=== PATIENT | female | born 1975 | race Caucasian/White ===

== ENCOUNTER 2017-11-13 19:17 | Emergency (ER) | payer OTHER ==
[~2017-11-13] VITALS: Ht 152.4 cm; Wt 77.6 kg
[2017-11-13 19:35] VITALS: BP 124/58
--- NOTE | 2017-11-13 20:18 | ED.ADGEN ---
Adult General Chief Complaint Chief Complaint Nasal congestion, Eye itching, tongue lesion HPI HPI She has noted increased itchy eyes and nasal drainage over the last 3 days. Today, she had a swollen right tongue with some swelling underneath her tongue. She had no difficulty swallowing or breathing. She's had a mild cough and hasn' t used her inhaler. Patient denies any fevers, productive cough. She denies any chest pain. She has prior history of angioedema Review of Systems Review of Systems Constitutional: Denies fever or chills Eyes: Denies change in visual acuity, redness, or eye pain HENT: With nasal congestion, no sore throat or stridor Respiratory: With non productive cough, no shortness of breath or stridor Cardiovascular: Denies chest pain or palpitations GI: Denies abdominal pain, nausea, vomiting, bloody stools or diarrhea : Denies dysuria or hematuria Musculoskeletal: Denies back pain or joint pain Integument: Denies rash or skin lesions Neurologic: Denies headache, focal weakness or sensory changes Endocrine: Denies polyuria or polydipsia All other systems were reviewed and found to be within normal limits, except as documented in this note. Allergies Allergies Allergies Coded Allergies Type Severity Reaction Last Updated Verified Penicillins Allergy Severe 11/13/17 Yes clindamycin Allergy Unknown 11/13/17 Yes doxycycline Allergy Unknown 11/13/17 Yes Physical Exam Physical Exam Constitutional: Well developed, well nourished, no acute distress, non-toxic appearance. HENT: Normocephalic, atraumatic, bilateral external ears normal, oropharynx moist, no oral exudates, nose with mild congestion bilaterally. With small 3mm right tongue ulceration with mild erythema. OP otherwise intact, uvula normal midline. No floor of moth swelling. Eyes: PERRLA, EOMI, conjunctiva injected bilaterally, no discharge. Neck: Normal range of motion, no tenderness, supple, no stridor. No adenopathy. Cardiovascular:Heart rate regular rhythm, no murmur Lungs & Thorax: Bilateral breath sounds clear to auscultation, no stridor Abdomen: Bowel sounds normal, soft, no tenderness, no masses, no pulsatile masses. Skin: Warm, dry, no erythema, no rash. Back: No tenderness, no CVA tenderness. Extremities: No tenderness, no cyanosis, no clubbing, ROM intact, no edema. Neurologic: Alert and oriented X 3, normal motor function, normal sensory function, no focal deficits noted. Psychologic: Affect normal, judgement normal, mood normal. Current Patient Data Vital Signs Vital Signs Date Time Temp Pulse Resp B/P (MAP) Pulse Ox O2 Delivery O2 Flow Rate FiO2 11/13/17 19:35 97.9 99 18 100 Room Air EKG EKG [] Radiology/Procedures Radiology/Procedures [] Course & Med Decision Making Course & Med Decision Making Emergency Department Course Patient presents with congestion, right tongue lesion The patient was stable in the ED. Exam noted right tongue canker sore without other OP swelling. Patient had no airway compromise. Patient has allergic conjunctivitis. Patient was given prescriptions for Naphcon A and oral peroxide rinse with PCP follow-up. Final Impression Final Impression Clinical Impression Canker sore Allergic Conjunctivitis Manuel Disclaimer Dragon Disclaimer This electronic medical record was generated, in whole or in part, using a voice recognition dictation system. Departure Departure: Impression: Primary Impression: Canker sores oral Additional Impression: Allergic conjunctivitis and rhinitis Disposition: HOME, SELF-CARE Condition: STABLE Referrals: NASIM MEMBRENO MD Follow-up tomorrow for further evaluation Patient Instructions: Allergic Conjunctivitis, Tunj-li-Pyyo, Allergic Rhinitis , Canker Sores Scripts Naphazoline Hcl/Pheniramine (NAPHCON-A EYE DROPS) 15 Ml Drops 15 ML OP QID for 7 Days, #1 DROP Prov: ESEQUIEL REYNOLDS MD 11/13/17 Hydrogen Peroxide (PEROXIDE SORE MOUTH CLEANSER) 236 Ml Solution 236 ML MM TID for 10 Days, #1 MISC Prov: ESEQUIEL REYNOLDS MD 11/13/17 ESEQUIEL REYNOLDS MD Nov 13, 2017 20:18
[2017-11-13] MEDS ORDERED: [UNRECOGNIZED DRUG - CODE] MM (20:28)
[2017-11-13] MEDS ORDERED: NAPH15DR OP (20:28)
== END 2017-11-13 20:45 | disposition home or self-care (01) ==
LOC: ER 19:17
DX: K12.0 Recurrent oral aphthae (principal); H10.13 Acute atopic conjunctivitis, bilateral; J30.9 Allergic rhinitis, unspecified; Z88.0 Allergy status to penicillin; Z88.1 Allergy status to other antibiotic agents
CPT/HCPCS: 99283

== ENCOUNTER 2018-06-24 21:19 | Emergency (ER) | payer OTHER ==
[~2018-06-24] VITALS: Ht 152.4 cm; Wt 77.6 kg
[2018-06-24 21:19] VITALS: BP 110/70
[~2018-06-24 21:19] MED LIST: NAPH15DR OP; [UNRECOGNIZED DRUG - CODE] MM
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
== END 2018-06-24 22:15 | disposition home or self-care (01) ==
LOC: ER 21:19
DX: Z77.21 Contact with and (suspected) exposure to potentially hazardous body fluids (principal); F41.9 Anxiety disorder, unspecified; G43.909 Migraine, unspecified, not intractable, without status migrainosus; Z88.0 Allergy status to penicillin; Z88.1 Allergy status to other antibiotic agents
CPT/HCPCS: 86703; 86705; 86709; 86803; 87340; 99283

== ENCOUNTER 2018-07-19 20:31 | Emergency (ER) | payer OTHER ==
[~2018-07-19] VITALS: Ht 149.9 cm; Wt 74.8 kg
[2018-07-19 21:03] VITALS: BP 110/50
--- NOTE | 2018-07-19 21:27 | ED.ADGEN ---
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 Patient states she felt a pull and a popping sensation in her left lower lumbar back. Pain radiates to left buttocks. No lower extremity weakness or loss of sensation. Injury occurred approximately 3 hours prior to ED arrival. Patient has history of factor V Leiden deficiency and is currently anticoagulated.[] Review of Systems Review of Systems Review symptoms as per history of present illness. All other review symptoms are negative. All other systems were reviewed and found to be within normal limits, except as documented in this note. Allergies Allergies Allergies Coded Allergies Type Severity Reaction Last Updated Verified Penicillins Allergy Severe 11/13/17 Yes clindamycin Allergy Unknown 11/13/17 Yes doxycycline Allergy Unknown 11/13/17 Yes Physical Exam Physical Exam Constitutional: Well developed, well nourished, no acute distress, non-toxic appearance. [] HENT: Normocephalic, atraumatic, bilateral external ears normal, oropharynx moist, no oral exudates, nose normal. [] Eyes: PERRLA, EOMI, conjunctiva normal, no discharge. [] Lungs & Thorax: Bilateral breath sounds clear to auscultation [] Abdomen: Bowel sounds normal, soft, no tenderness. [] Skin: Warm, dry, no erythema, no rash. [] Back: No midline spinal tenderness, left lower number paravertebral, left buttock tenderness. No bruising.. [] Extremities: No tenderness, no cyanosis, no clubbing, ROM intact, no edema. [] Neurologic: Alert and oriented X 3, left lower extremity, normal motor function, normal sensory function, no focal deficits noted. Reflexes 2+ and symmetric. [] Psychologic: Affect normal, judgement normal, mood normal. [] Current Patient Data Vital Signs Vital Signs Date Time Temp Pulse Resp B/P (MAP) Pulse Ox O2 Delivery O2 Flow Rate FiO2 07/19/18 21:03 98.1 86 20 96 Room Air EKG EKG [] Radiology/Procedures Radiology/Procedures [] Course & Med Decision Making Course & Med Decision Making Pertinent Labs and Imaging studies reviewed. (See chart for details) [Musculoskeletal low back pain without neurologic deficit.] Final Impression Final Impression acute [Lumbar radiculopathy] Manuel Disclaimer Manuel Disclaimer This electronic medical record was generated, in whole or in part, using a voice recognition dictation system. JOSE DICKINSON DO July 19, 2018 21:27
[2018-07-19] MEDS ORDERED: HYDROcodone/APAP 10/325 1 TAB TABLET PO ONE (21:30)
[2018-07-19] MEDS ORDERED: CYCL-331 PO (21:30)
[2018-07-19] MEDS ORDERED: HYDR-3165 PO (21:30)
[2018-07-19] MEDS ORDERED: HYDROcodone/APAP 5/325MG 1 TAB TABLET ONE (21:31)
== END 2018-07-19 21:40 | disposition home or self-care (01) ==
LOC: ER 20:31
DX: M54.16 Radiculopathy, lumbar region (principal); F41.9 Anxiety disorder, unspecified; G43.909 Migraine, unspecified, not intractable, without status migrainosus; D68.51 Activated protein C resistance; Z90.89 Acquired absence of other organs; Z90.49 Acquired absence of other specified parts of digestive tract; Z98.890 Other specified postprocedural states; Z88.0 Allergy status to penicillin; Z88.1 Allergy status to other antibiotic agents
CPT/HCPCS: 99283

== ENCOUNTER 2018-08-10 12:41 | Emergency (ER) | payer OTHER ==
[~2018-08-10] VITALS: Ht 149.9 cm; Wt 74.8 kg
[2018-08-10 12:41] VITALS: BP 132/89
[~2018-08-10 12:41] MED LIST changes: +CYCL-331 PO; +HYDR-3165 PO
[2018-08-10] MEDS ORDERED: TRAM50TA PO (13:26)
[2018-08-10] MEDS ORDERED: ORPH-16 PO (13:26)
--- NOTE | 2018-08-10 13:26 | PHYS DOC ---
Past History Past Medical History: Anxiety, Endometriosis, Migraines, Other Past Surgical History: Appendectomy, Cancer Surgery, Cholecystectomy, Alcohol Use: None Drug Use: None Adult General Chief Complaint Chief Complaint: CLAVICLE INJURY HPI HPI Patient is a 42-year-old female presents with left-sided back pain for the past 2 weeks. She was initially injured trying to help another coworker lifted a full ice bucket up overhead to put on a shelf. She denies any midline tenderness. Denies any loss of bowel or bladder control. Denies any subsequent trauma. She is been getting pain management through [facility]. without significant improvement, including limited oxycodone given that she is still working, with prolonged sitting. Pain is moderate, worse with movement.[] Review of Systems Review of Systems Constitutional: Denies fever or chills [] Eyes: Denies change in visual acuity, redness, or eye pain [] HENT: Denies nasal congestion or sore throat [] Respiratory: Denies cough or shortness of breath [] Cardiovascular: No chest pain or palpitations[] GI: Denies abdominal pain, nausea, vomiting, bloody stools or diarrhea [] : Denies dysuria or hematuria [] Musculoskeletal: Denies joint pain, see history of present illness [] Integument: Denies rash or skin lesions [] Neurologic: Denies headache, focal weakness or sensory changes [] Endocrine: Denies polyuria or polydipsia [] All other systems were reviewed and found to be within normal limits, except as documented in this note. Allergies Allergies Allergies Coded Allergies Type Severity Reaction Last Updated Verified Penicillins Allergy Severe 11/13/17 Yes clindamycin Allergy Unknown 11/13/17 Yes doxycycline Allergy Unknown 11/13/17 Yes Physical Exam Physical Exam Constitutional: Well developed, well nourished, no acute distress, non-toxic appearance. [] HENT: Normocephalic, atraumatic, bilateral external ears normal, oropharynx moist, no oral exudates, nose normal. [] Eyes: PERRLA, EOMI, conjunctiva normal, no discharge. [] Neck: Normal range of motion, no tenderness, supple, no stridor. [] Cardiovascular:Heart rate regular rhythm, no murmur [] Lungs & Thorax: Bilateral breath sounds clear to auscultation [] Abdomen: Bowel sounds normal, soft, no tenderness, no masses, no pulsatile masses. [] Skin: Warm, dry, no erythema, no rash. [] Back: Tenderness in the left lumbar paraspinal musculature with spasm. This re- creates the pain. Full active range of motion. Normal gait. Normal DTRs, no CVA tenderness. [] Extremities: No tenderness, no cyanosis, no clubbing, ROM intact, no edema. [] Neurologic: Alert and oriented X 3, normal motor function, normal sensory function, no focal deficits noted. [] Psychologic: Affect normal, judgement normal, mood normal. [] Current Patient Data Vital Signs Vital Signs Date Time Temp Pulse Resp B/P (MAP) Pulse Ox O2 Delivery O2 Flow Rate FiO2 08/10/18 12:41 Room Air 08/10/18 12:41 97.7 89 20 99 EKG EKG [] Radiology/Procedures Radiology/Procedures [] Course & Med Decision Making Course & Med Decision Making Pertinent Labs and Imaging studies reviewed. (See chart for details) Medical decision making: There is no evidence of an acute fracture or dislocation given the lack of midline tenderness. We will cover the patient for pain and muscle spasm. NSAIDs are limited due to her pain on blood thinners due to her factor V Leiden.[] Dragon Disclaimer Dragon Disclaimer This electronic medical record was generated, in whole or in part, using a voice recognition dictation system. Departure Departure: Impression: Primary Impression: Back pain Disposition: HOME, SELF-CARE Condition: IMPROVED Referrals: NAHEED HUGHES (PCP) Follow-up in 2 days Patient Instructions: Low Back Sprain with [facility] Additional Instructions: Follow-up with your regular doctor in 2 days. Apply warm compresses to the affected area at least 4 times a day for 15 minutes at a time. Return to the ER if worsening pain, loss of bowel or bladder control, or any other concerns. Scripts Tramadol Hcl (TRAMADOL HCL) 50 Mg Tablet 50 MG PO PRN Q6HRS PRN for PAIN, #20 TAB Prov: CECY NEGRO DO 08/10/18 Orphenadrine Citrate (ORPHENADRINE CITRATE) 100 Mg Tablet.er 100 MG PO BID for BACK PAIN, #20 TAB.SR Prov: CECY NEGRO DO 08/10/18 Problem Qualifiers Primary Impression: Back pain Back pain location: low back pain Chronicity: acute Back pain laterality: left Sciatica presence: without sciatica Qualified Codes: M54.5 - Low back pain CECY NEGRO DO August 10, 2018 13:26
== END 2018-08-10 13:30 | disposition home or self-care (01) ==
LOC: ER 12:41
DX: M54.5 Low back pain (principal); F41.9 Anxiety disorder, unspecified; G43.909 Migraine, unspecified, not intractable, without status migrainosus; Z90.89 Acquired absence of other organs; Z90.49 Acquired absence of other specified parts of digestive tract; Z98.890 Other specified postprocedural states; Z88.0 Allergy status to penicillin; Z88.1 Allergy status to other antibiotic agents; X50.9XXA Other and unspecified overexertion or strenuous movements or postures, initial encounter; Y93.89 Activity, other specified; Y92.89 Other specified places as the place of occurrence of the external cause; Y99.8 Other external cause status
CPT/HCPCS: 99283

== ENCOUNTER 2018-10-27 19:20 | Emergency (ER) | payer OTHER ==
[~2018-10-27] VITALS: Ht 149.9 cm; Wt 78.5 kg
[~2018-10-27 19:20] MED LIST changes: +ORPH-16 PO; +TRAM50TA PO
[2018-10-27] MEDS ORDERED: ORPHENADRINE CITRATE 60 MG/2 ML VIAL. IM ONE (22:00)
[2018-10-27] MEDS ORDERED: MORPHINE SULFATE 10 MG/ML SYRINGE. SQ ONE ×2 (22:00→23:45)
[2018-10-27 22:27] LABS: BACTERIA,URINE MANY /HPF (0-FEW); BILIRUBIN,URINE NEG (NEG); CLARITY,URINE CLOUDY; COLOR,URINE YELLOW; GLUCOSE,URINE NEG (NEG); NITRITE,URINE POS (NEG); RBC,URINE 0 /HPF (0-2); SQUAMOUS EPITHELIAL CELL,UR MOD /LPF; UROBILINOGEN,URINE 0.2 mg/dL (0.2 mg/dL)
--- NOTE | 2018-10-27 22:57 | ED.ADGEN ---
Past History Past Medical History: Anxiety, Endometriosis, Migraines, Other Past Surgical History: Appendectomy, Cancer Surgery, Cholecystectomy, Alcohol Use: None Drug Use: None Adult General Chief Complaint Chief Complaint ".. I hurt my back at work.. . 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 Pt. initial injury was on July 19 of this year.( See ED report that date). Patient followed with work comp. Was released October 17 to full duty. Patient however upon return to work has had increased back pain. Patient reports the narcotic pain meds are not helpful for relieving pain. Patient also reports of muscle relaxers have not helped.. Patient reportedly had a MRI evaluation of her back. Patient states she cannot take anti-inflammatories because her factor V deficiency and her use of anticoagulation meds. Patient denies any problems with defecation or urination. Patient denies any history of immune suppression. No recent history of fever or chills. Patient denies any loss of saddle sensation or anesthesia. Denies any history of urinary retention. Still has pain with straight leg lift on the left. Pain is particularly exacerbated going downstairs. No recent travel. No specific ill contacts. Patient has tried lidocaine patches without success in relieving her pain. Review of Systems Review of Systems Constitutional: Denies fever or chills [] Eyes: Denies change in visual acuity, redness, or eye pain [] HENT: Denies nasal congestion or sore throat [] Respiratory: Denies cough or shortness of breath [] Cardiovascular: No additional information not addressed in HPI [] GI: Denies abdominal pain, nausea, vomiting, bloody stools or diarrhea [] : Denies dysuria or hematuria [] Musculoskeletal: Complaints of low back pain and sciatica particularly on left. Integument: Denies rash or skin lesions [] Neurologic: Denies headache, focal weakness or sensory changes [] Endocrine: Denies polyuria or polydipsia [] All other systems were reviewed and found to be within normal limits, except as documented in this note. Family History Family History Noncontributory Current Medications Current Medications Current Medications Medications (Trade) Dose Ordered Sig/Radu Start Time Stop Time Status Last Admin Dose Admin Lorazepam (Ativan) 2 mg 1X ONCE 10/27/18 23:45 10/28/18 00:16 DC 10/27/18 23:56 2 MG Methylprednisolone Acetate (DEPO-Medrol IM) 40 mg 1X ONCE 10/27/18 23:45 10/28/18 00:16 DC 10/27/18 23:56 40 MG Morphine Sulfate (Morphine 10mg Syringe) 10 mg 1X ONCE 10/27/18 23:45 10/28/18 00:16 DC 10/27/18 23:56 10 MG Orphenadrine Citrate (Norflex) 60 mg 1X ONCE 10/27/18 22:00 10/27/18 22:01 DC 10/27/18 22:01 60 MG Allergies Allergies Allergies Coded Allergies Type Severity Reaction Last Updated Verified Penicillins Allergy Severe 11/13/17 Yes clindamycin Allergy Unknown 11/13/17 Yes doxycycline Allergy Unknown 11/13/17 Yes Physical Exam Physical Exam Constitutional: Moderately acute distress, non-toxic appearance. [] HENT: Normocephalic, atraumatic, bilateral external ears normal, oropharynx moist, no oral exudates, nose normal. [] Eyes: PERRLA, EOMI, conjunctiva normal, no discharge. [] Neck: Normal range of motion, no tenderness, supple, no stridor. [] Cardiovascular:Heart rate regular rhythm, no murmur [] Lungs & Thorax: Bilateral breath sounds equal apexes few scattered wheezes on auscultation [] Abdomen: Bowel sounds normal, soft, no tenderness, no masses, no pulsatile masses. Old surgery scars. Mild obesity. Declines rectal exam at this time.. No saddle loss reported. Skin: Warm, dry, no erythema, no rash. [] Back: Lumbar sacral muscle spasms and pain with palpation of bilateral S/I joints Extremities: No tenderness, no cyanosis, no clubbing, ROM intact, no edema. [] Straight leg lift on left exacerbate her low back pain Neurologic: Alert and oriented X 3, normal motor function, normal sensory function, no focal deficits noted. [] Psychologic: Affect anxious, judgement normal, mood normal. [] Current Patient Data Vital Signs Vital Signs Date Time Temp Pulse Resp B/P (MAP) Pulse Ox O2 Delivery O2 Flow Rate FiO2 10/28/18 00:05 85 20 132/80 (97) 100 Room Air 10/27/18 20:00 98.2 Lab Results Laboratory Tests Test 10/27/18 21:15 Urine Collection Type Void Urine Color Yellow Urine Clarity Cloudy Urine pH 5.5 Urine Specific [place] 1.015 Urine Protein Neg (NEG-TRACE) Urine Glucose (UA) Neg mg/dL (NEG) Urine Ketones (Stick) Neg mg/dL (NEG) Urine Blood Neg (NEG) Urine Nitrite Pos (NEG) Urine Bilirubin Neg (NEG) Urine Urobilinogen Dipstick 0.2 mg/dL (0.2 mg/dL) Urine Leukocyte Esterase Trace (NEG) Urine RBC 0 /HPF (0-2) Urine WBC 1-4 /HPF (0-4) Urine Squamous Epithelial Cells Mod /LPF Urine Bacteria Many /HPF (0-FEW) EKG EKG [] Radiology/Procedures Radiology/Procedures [] Course & Med Decision Making Course & Med Decision Making Pertinent Labs and Imaging studies reviewed. (See chart for details). Patient to use ice packs as needed for back pain. Patient will be given a couple doses of Decadron 40 mg. Patient to continue Percocet as needed for his severe exacerbations of pain. Patient take current muscle relaxers as directed. She may need MRI with contrast and trigger point injections. Consider physical therapy and pain center consult. No return to work until reevaluation by work comp. A trial of Voltran gel. 1%, with warning this may exacerbate bleeding with use of her anticoagulants. Patient uses gel only sparingly and once a day. Return if any concerns. Must keep follow-up workmen comp. [] Final Impression Final Impression 1. Low back pain- Work Injury[] 2. History of factor V deficiency Dragon Disclaimer Dragon Disclaimer This electronic medical record was generated, in whole or in part, using a voice recognition dictation system. Dragon Disclaimer This chart was dictated in whole or in part using Voice Recognition software in a busy, high-work load, and often noisy Emergency Department environment. It may contain unintended and wholly unrecognized errors or omissions. JANICE LAU MD Oct 27, 2018 22:57
[2018-10-27] MEDS ORDERED: OXYC1TAB15 PO (23:41)
[2018-10-27] MEDS ORDERED: LORazepam 1 MG TABLET PO ONE (23:45)
[2018-10-27] MEDS ORDERED: methylPREDNISolone ACETATE 40 MG/ML VIAL. IM ONE (23:45)
[2018-10-28 00:05] VITALS: BP 132/80
== END 2018-10-28 00:10 | disposition home or self-care (01) ==
LOC: ER 19:20
DX: S39.92XA Unspecified injury of lower back, initial encounter (principal); D68.2 Hereditary deficiency of other clotting factors; G43.909 Migraine, unspecified, not intractable, without status migrainosus; Z90.89 Acquired absence of other organs; Z90.49 Acquired absence of other specified parts of digestive tract; Z98.890 Other specified postprocedural states; Z88.0 Allergy status to penicillin; Z88.1 Allergy status to other antibiotic agents; X50.9XXA Other and unspecified overexertion or strenuous movements or postures, initial encounter; Y93.89 Activity, other specified; Y92.89 Other specified places as the place of occurrence of the external cause; Y99.0 Civilian activity done for income or pay
CPT/HCPCS: 81001; 87086; 96372; 99284; J1030; J2270; J2360